=== PATIENT | female | born 1985 | race American Indian/Alaskan Native ===

== ENCOUNTER 2019-12-02 00:13 | Emergency (ER) | payer SELFPAY ==
--- NOTE | 2019-12-02 01:59 | XRay Report ---
CHEST 1 VIEW INDICATION: Chest Pain. COMPARISON: None. FINDINGS: Support devices: None. Heart: Normal. Lungs/Pleura: No acute pulmonary or pleural findings. IMPRESSION: 1. No acute findings. Signer Name: Pancho Joshi MD Signed: 12/02/2019 1:54 AM Workstation Name: [id number]
[2019-12-02 03:28] LABS: Basophils % (Auto) 0.2 % (0.0-1.8); Eosinophils % (Auto) 0.6 % (0.0-4.3); Hematocrit 36.1 % (30.3-42.9); Hemoglobin 11.9 gm/dl (10.1-14.3); Lymphocytes % (Auto) 30.3 % (13.4-35.0); Mean Corpuscular HGB Conc 33 % (30-34); Mean Corpuscular Volume 89 fl (79-97); Monocytes # (Auto) 0.5 K/mm3 (0.0-0.8); Monocytes % (Auto) 6.8 % (0.0-7.3); Platelet Count 317 K/mm3 (140-440); Red Blood Count 4.04 M/mm3 (3.65-5.03)
[2019-12-02 03:53] LABS: BUN/Creatinine Ratio 7; Blood Urea Nitrogen 8 mg/dL (7-17); Calcium 9.9 mg/dL (8.4-10.2); Hemolysis Index 28
[2019-12-02] MEDS ORDERED: ONDANSETRON 4 MG ODT TAB PO ONE (06:12)
[2019-12-02] MEDS ORDERED: ONDANSETRON 4 MG ODT TAB ONE (06:15)
[2019-12-02] MEDS ORDERED: ALUM-MAG HYDROXIDE-SIMETHICONE 200-200-20MG/5ML ORAL LIQD 30 ML PO ONE (09:59)
[2019-12-02] MEDS ORDERED: LIDOCAINE VISCOUS 2% 15 ML ORAL LIQD PO ONE (09:59)
[2019-12-02 10:01] VITALS: BP 129/87
--- NOTE | 2019-12-02 10:41 | Emergency Department Report ---
ED Chest Pain HPI - General Chief Complaint: Chest Pain Stated Complaint: CHEST PAIN,ARM PAIN ,NEAURS Time Seen by Provider: 12/02/19 09:39 Source: patient Mode of arrival: Ambulatory Limitations: No Limitations - History of Present Illness Initial Comments: 34-year-old female with a past medical history of recently diagnosed hypertension and reflux presents to the Hospital complaining of continued intermittent chest pain since mid October. Patient has been experiencing intermittent chest tightness at times and a burning sensation at other times. Pain is she started in the epigastric/lower mid chest region and now is more in the mid chest. Patient has associated nausea without vomiting. She denies shortness of breath and diaphoresis. She has intermittent tingling sensation to her left arm and hand. Patient was initially seen at a in the ER in [employer] in October for similar symptoms. She was diagnosed with new-onset hypertension and GERD. She was discharged on Pepcid and hydrochlorothiazide 25 mg daily. She didn't followed up with the [facility] earlier this month and had her blood pressure rechecks without medication adjustment. Patient now comes ER here due to continued symptoms. She does report some relief with taking Pepcid. Patient does not take NSAIDs. No previous cardiac workup. Her father of a heart attack in his 50s. She does not smoke, use cocaine, have Tenderness, recent travel, PE / DVT, or known elevated cholesterol and diabetes. Severity scale (0 -10): 9 - Related Data Previous Rx's Medication Instructions Recorded Last Taken Type Mag Hydrox/Aluminum Hyd/Simeth 20 ml PO QID PRN #1 bottle 12/02/19 Unknown Rx [Maalox Advanced Suspension] Omeprazole Magnesium [PriLOSEC Otc] 20 mg PO QDAY #14 tablet. 12/02/19 Unknown Rx Allergies Allergy/AdvReac Type Severity Reaction Status Date / Time acetaminophen [From Percocet] Allergy Hives Verified 12/02/19 00:42 amoxicillin Allergy Swelling Verified 12/02/19 00:42 oxycodone [From Percocet] Allergy Hives Verified 12/02/19 00:42 Heart Score - HEART Score History: Slightly suspicious EKG: Normal Age: < 45 Risk factors: 1-2 risk factors Troponin: < normal limit HEART Score: 1 ED Review of Systems ROS: Stated complaint: CHEST PAIN,ARM PAIN ,NEAURS Other details as noted in HPI Comment: All other systems reviewed and negative Gastrointestinal: diarrhea (loose stools since October without hematochezia or melena) Neurological: paresthesias (intermittent left arm) ED Past Medical Hx - Past Medical History Previous Medical History?: Yes Hx Hypertension: Yes Hx GERD: Yes - Surgical History Past Surgical History?: Yes Additional Surgical History: X 3, Tubal Ligation, - Social History Smoking Status: Never Smoker - Medications Home Medications: Home Medications Medication Instructions Recorded Confirmed Last Taken Type Mag Hydrox/Aluminum Hyd/Simeth 20 ml PO QID PRN #1 bottle 12/02/19 Unknown Rx [Maalox Advanced Suspension] Omeprazole Magnesium [PriLOSEC Otc] 20 mg PO QDAY #14 tablet. 12/02/19 Unknown Rx ED Physical Exam - General Limitations: No Limitations - Other Other exam information: General: No limitations, patient is alert in no acute distress Head exam: Atraumatic, normocephalic Eyes exam: Normal appearance ENT: Moist mucous membrane Neck exam: Normal inspection, full range of motion, no meningismus nontender Respiratory exam: Clear to auscultation bilateral, no wheezes, rales, crackles Cardiovascular: Normal rate and rhythm, normal heart sounds, chest wall nontender Abdomen: Soft, nondistended, and nontender, with normal bowel sounds, no rebound, or guarding Extremity: Full range of motion normal inspection no deformity, no calf tenderness or leg edema Back: Normal Inspection, full range of motion, no tenderness Neurologic: Alert, oriented x3, cranial nerves intact, no motor or sensory deficit Psychiatric: normal affect, normal mood Skin: Warm, dry, intact ED Course Vital Signs 12/02/19 12/02/19 12/02/19 00:24 07:59 09:35 Temperature 98.0 F 97.8 F Pulse Rate 101 H 74 Respiratory 18 20 Rate Blood Pressure 139/79 120/87 Blood Pressure 117/80 [Right] O2 Sat by Pulse 99 100 Oximetry 12/02/19 09:45 Temperature Pulse Rate Respiratory Rate Blood Pressure 129/87 Blood Pressure [Right] O2 Sat by Pulse 100 Oximetry DEEPA score - Deepa Score Age > 65: (0) No Aspirin use within the Past 7 Days: (0) No 3 or more CAD Risk Factors: (0) No 2 or more Angina events in past 24 hrs: (0) No Known CAD with more than 50% Stenosis: (0) No Elevated Cardiac Markers: (0) No ST Deviation Greater than 0.5mm: (0) No DEEPA Score: 0 ED Medical Decision Making - Lab Data Result diagrams: 12/02/19 02:48 12/02/19 02:48 Lab Results 12/02/19 12/02/19 12/02/19 Range/Units 02:48 02:48 02:48 WBC 6.6 (4.5-11.0) K/mm3 RBC 4.04 (3.65-5.03) M/mm3 Hgb 11.9 (10.1-14.3) gm/dl Hct 36.1 (30.3-42.9) % MCV 89 (79-97) fl MCH 30 (28-32) pg MCHC 33 (30-34) % RDW 14.0 (13.2-15.2) % Plt Count 317 (140-440) K/mm3 Lymph % (Auto) 30.3 (13.4-35.0) % [place] % (Auto) 6.8 (0.0-7.3) % Eos % (Auto) 0.6 (0.0-4.3) % Baso % (Auto) 0.2 (0.0-1.8) % Lymph # 2.0 (1.2-5.4) K/mm3 [place] # 0.5 (0.0-0.8) K/mm3 Eos # 0.0 (0.0-0.4) K/mm3 Baso # 0.0 (0.0-0.1) K/mm3 Seg Neutrophils % 62.1 (40.0-70.0) % Seg Neutrophils # 4.1 (1.8-7.7) K/mm3 Sodium 140 (137-145) mmol/L Potassium 3.7 (3.6-5.0) mmol/L Chloride 99.7 (98-107) mmol/L Carbon Dioxide 26 (22-30) mmol/L Anion Gap 18 mmol/L BUN 8 (7-17) mg/dL Creatinine 1.1 (0.7-1.2) mg/dL Estimated GFR > 60 ml/min BUN/Creatinine Ratio 7 % Glucose 103 H (65-100) mg/dL Calcium 9.9 (8.4-10.2) mg/dL Troponin T < 0.010 (0.00-0.029) ng/mL HCG, Qual Negative (Negative) 12/02/19 12/02/19 Range/Units 04:34 07:00 WBC (4.5-11.0) K/mm3 RBC (3.65-5.03) M/mm3 Hgb (10.1-14.3) gm/dl Hct (30.3-42.9) % MCV (79-97) fl MCH (28-32) pg MCHC (30-34) % RDW (13.2-15.2) % Plt Count (140-440) K/mm3 Lymph % (Auto) (13.4-35.0) % [place] % (Auto) (0.0-7.3) % Eos % (Auto) (0.0-4.3) % Baso % (Auto) (0.0-1.8) % Lymph # (1.2-5.4) K/mm3 [place] # (0.0-0.8) K/mm3 Eos # (0.0-0.4) K/mm3 Baso # (0.0-0.1) K/mm3 Seg Neutrophils % (40.0-70.0) % Seg Neutrophils # (1.8-7.7) K/mm3 Sodium (137-145) mmol/L Potassium (3.6-5.0) mmol/L Chloride (98-107) mmol/L Carbon Dioxide (22-30) mmol/L Anion Gap mmol/L BUN (7-17) mg/dL Creatinine (0.7-1.2) mg/dL Estimated GFR ml/min BUN/Creatinine Ratio % Glucose (65-100) mg/dL Calcium (8.4-10.2) mg/dL Troponin T < 0.010 < 0.010 (0.00-0.029) ng/mL HCG, Qual (Negative) - EKG Data -: EKG Interpreted by Nv EKG shows normal: sinus rhythm, ST-T waves (no stemi) Rate: normal - EKG Data 12/02/19 10:42 repeat ed ekg at 10:16a normal - Radiology Data Radiology results: report reviewed CHEST 1 VIEW INDICATION: Chest Pain. COMPARISON: None. FINDINGS: Support devices: None. Heart: Normal. Lungs/Pleura: No acute pulmonary or pleural findings. IMPRESSION: 1. No acute findings. - Medical Decision Making Patient has mid chest pain intermittent tightness and burning and also complains of uncomfortable feeling swelling. Patient has a normal EKG x 2 with 3 negative troponins and a low heart score. provided maalox and viscous lidocaine in ED Patient warrants outpatient follow-up. She has been seen by primary care doctor. Symptoms continued despite Prilosec. Patient be placed on a PPI qand Maalox. GI and cardio f/u for outpt stress with [facility] will be proved - Differential Diagnosis mi, atypical cp, costochondritis, GERD, esophageal spasm, PE Critical Care Time: No Critical care attestation.: If time is entered above; I have spent that time in minutes in the direct care of this critically ill patient, excluding procedure time. ED Disposition Clinical Impression: Chest pain, GERD (gastroesophageal reflux disease) Disposition: TO HOME OR SELFCARE Is pt being admited?: No Does the pt Need Aspirin: No Condition: Stable Instructions: Chest Pain (ED), Gastroesophageal Reflux Disease (ED) Additional Instructions: Take the medication as prescribed. Follow-up with your doctor or with the doctor provided. Return is symptoms worsen as indicated by your discharge instructions. Prescriptions: Mag Hydrox/Aluminum Hyd/Simeth [Maalox Advanced Suspension] 20 ml PO QID PRN #1 bottle PRN Reason: Indigestion Omeprazole Magnesium [PriLOSEC Otc] 20 mg PO QDAY #14 tablet. Referrals: PRIMARY CARE, [Primary Care Provider] - 3-5 Days [facility] [Provider Group] - 2-3 Days [facility] [Provider Group] - 3-5 Days (GI doctor ) Time of Disposition: 10:46
== END 2019-12-02 11:19 | disposition home or self-care (01) ==
LOC: ED 00:13
DX: K21.9 Gastro-esophageal reflux disease without esophagitis (principal); Z98.51 Tubal ligation status; I10 Essential (primary) hypertension; Z79.899 Other long term (current) drug therapy; Z88.6 Allergy status to analgesic agent; Z88.1 Allergy status to other antibiotic agents; Z88.5 Allergy status to narcotic agent
CPT/HCPCS: 36415; 71045; 80048; 84484; 84703; 85025; 93005; 93010; Q0162

== ENCOUNTER 2020-06-03 19:25 | Emergency (ER) | payer OTHER ==
--- NOTE | 2020-06-03 20:28 | Event Note ---
ED Screening Note ED Screening Note: tingling in chest recent dx gerd today she took bp pill had sweaty palms/feet This initial assessment/diagnostic orders/clinical plan/treatment(s) is/are subject to change based on patients health status, clinical progression and re- assessment by fellow clinical providers in the ED. Further treatment and workup at subsequent clinical providers discretion. Patient/guardian urged not to elope from the ED as their condition may be serious if not clinically assessed and managed. Initial orders include: labs ua xray
[2020-06-03 21:52] LABS: Hematocrit TNR % (30.3-42.9); Hemoglobin TNR gm/dl (10.1-14.3); Mean Corpuscular Volume TNR fl (79-97); Red Blood Count TNR M/mm3 (3.65-5.03)
[2020-06-03 21:53] LABS: Basophils % (Auto) TNR % (0.0-1.8); Eosinophils % (Auto) TNR % (0.0-4.3); Lymphocytes % (Auto) TNR % (13.4-35.0); Mean Corpuscular HGB Conc TNR % (30-34); Mean Platelet Volume TNR fl (6-12); Monocytes % (Auto) TNR % (0.0-7.3); Platelet Count TNR K/mm3 (140-440); Red Cell Distribution Width TNR % (13.2-15.2)
[2020-06-03 21:54] LABS: Basophils # (Auto) TNR K/mm3 (0.0-0.1); Eosinophils # (Auto) TNR K/mm3 (0.0-0.4); Lymphocytes # (Auto) TNR K/mm3 (1.2-5.4); Monocytes # (Auto) TNR K/mm3 (0.0-0.8)
[2020-06-03 22:01] LABS: Blood Urea Nitrogen 16 mg/dL (7-17); Calcium 9.2 mg/dL (8.4-10.2); Hemolysis Index 22
[2020-06-03 22:02] LABS: Basophils % (Auto) 0.5 % (0.0-1.8); Eosinophils % (Auto) 0.2 % (0.0-4.3); Hematocrit 38.4 % (30.3-42.9); Hemoglobin 12.5 gm/dl (10.1-14.3); Lymphocytes # (Auto) 1.8 K/mm3 (1.2-5.4); Lymphocytes % (Auto) 25.6 % (13.4-35.0); Mean Corpuscular HGB Conc 33 % (30-34); Mean Corpuscular Volume 90 fl (79-97); Monocytes # (Auto) 0.4 K/mm3 (0.0-0.8); Monocytes % (Auto) 5.4 % (0.0-7.3); Platelet Count 296 K/mm3 (140-440); Red Blood Count 4.28 M/mm3 (3.65-5.03); Red Cell Distribution Width 14.2 % (13.2-15.2)
[2020-06-03 22:23] LABS: Alanine Aminotransferase 12 units/L (7-56); BUN/Creatinine Ratio 18
[2020-06-03 22:25] LABS: HCG Qualitative,Urine Negative (Negative)
--- NOTE | 2020-06-03 23:14 | XRay Report ---
CHEST 2 VIEWS INDICATION / CLINICAL INFORMATION: MAIN. Chest pain COMPARISON: None available. FINDINGS: SUPPORT DEVICES: None. HEART / MEDIASTINUM: No significant abnormality. LUNGS / PLEURA: No significant pulmonary or pleural abnormality. No pneumothorax. ADDITIONAL FINDINGS: No significant additional findings. IMPRESSION: 1. No acute findings. Signer Name: Kevyn Key MD Signed: 06/03/2020 11:09 PM Workstation Name: [id number]
--- NOTE | 2020-06-04 01:49 | Emergency Department Report ---
ED General Adult HPI - General Chief complaint: Chest Pain Stated complaint: ACCELERATED HEART RATE, SWEATY HANDS Time Seen by Provider: 06/04/20 00:01 Source: patient Mode of arrival: Ambulatory Limitations: No Limitations - History of Present Illness Initial comments: 34-year-old F [place] female with past medical history of hypertension was currently taking hydrochlorothiazide 25 mg when her doctor has changed her about 6 months ago to lisinopril she is been taking medication off and on but not quite as prescribed and states that she has been feeling what she thinks are side effect of the medication once since symptoms she is been experiencing is a dry cough and other is tingling to the lips and occasional palpitations and near sensations of sweats. States that she does not feel the symptoms when she is not taking the medication but only after she been on the medication for couple days she reports no chest pain, hemoptysis, hematemesis, hematochezia Radiation: non-radiation Improves with: none Worsens with: none Associated Symptoms: denies: confusion, chest pain, cough, loss of appetite, malaise, shortness of breath, syncope, weakness Treatments Prior to Arrival: none - Related Data Previous Rx's Medication Instructions Recorded Last Taken Type Mag Hydrox/Aluminum Hyd/Simeth 20 ml PO QID PRN #1 bottle 12/02/19 Unknown Rx [Maalox Advanced Suspension] Omeprazole Magnesium [PriLOSEC Otc] 20 mg PO QDAY #14 tablet. 12/02/19 Unknown Rx Ondansetron [Zofran Odt] 4 mg PO Q8HR PRN #14 tab.rapdis 12/02/19 Unknown Rx Allergies Allergy/AdvReac Type Severity Reaction Status Date / Time acetaminophen [From Percocet] Allergy Hives Verified 12/02/19 00:42 amoxicillin Allergy Swelling Verified 12/02/19 00:42 oxycodone [From Percocet] Allergy Hives Verified 12/02/19 00:42 ED Review of Systems ROS: Stated complaint: ACCELERATED HEART RATE, SWEATY HANDS Other details as noted in HPI Comment: All other systems reviewed and negative ED Past Medical Hx - Past Medical History Previous Medical History?: Yes Hx Hypertension: Yes Hx GERD: Yes - Surgical History Past Surgical History?: Yes Additional Surgical History: X 3, Tubal Ligation, - Social History Smoking Status: Never Smoker - Medications Home Medications: Home Medications Medication Instructions Recorded Confirmed Last Taken Type Mag Hydrox/Aluminum Hyd/Simeth 20 ml PO QID PRN #1 bottle 12/02/19 Unknown Rx [Maalox Advanced Suspension] Omeprazole Magnesium [PriLOSEC Otc] 20 mg PO QDAY #14 tablet. 12/02/19 Unknown Rx Ondansetron [Zofran Odt] 4 mg PO Q8HR PRN #14 tab.rapdis 12/02/19 Unknown Rx ED Physical Exam - General Limitations: No Limitations General appearance: alert, in no apparent distress - Head Head exam: Present: atraumatic, normocephalic - Eye Eye exam: Present: normal appearance, PERRL, EOMI Pupils: Present: normal accommodation - ENT ENT exam: Present: normal exam, normal orophraynx, mucous membranes moist - Neck Neck exam: Present: normal inspection, full ROM - Respiratory Respiratory exam: Present: normal lung sounds bilaterally. Absent: respiratory distress - Cardiovascular Cardiovascular Exam: Present: regular rate, normal rhythm. Absent: systolic murmur, diastolic murmur, rubs, gallop - GI/Abdominal GI/Abdominal exam: Present: soft, normal bowel sounds - Extremities Exam Extremities exam: Present: normal inspection - Back Exam Back exam: Present: normal inspection - Neurological Exam Neurological exam: Present: alert, oriented X3 - Psychiatric Psychiatric exam: Present: normal affect, normal mood - Skin Skin exam: Present: warm, dry, intact, normal color. Absent: rash ED Course Vital Signs 06/03/20 20:21 Pulse Rate 107 H Respiratory 16 Rate Blood Pressure 139/87 O2 Sat by Pulse 100 Oximetry ED Medical Decision Making - Lab Data Result diagrams: 06/03/20 21:51 06/03/20 21:30 - Medical Decision Making 34-year-old F [place] female ambulatory no acute distress speaking in full se ntences stable with a normal EKG with exception of mild tachycardia 107 which currently her heart rate is at 92. Asked patient to call her primary care provider in the morning to adjust her lisinopril and to hold the medication at this present time currently there is no signs of angioedema or wheezing no signs of anaphylaxis. Her blood pressure is stable as is her vitals. She understands the need to take the blood pressure medication given a past medical history and states she will call her doctor in the morning Critical care attestation.: If time is entered above; I have spent that time in minutes in the direct care of this critically ill patient, excluding procedure time. ED Disposition Clinical Impression: Medication reaction, Palpitations Disposition: - TO HOME OR SELFCARE Is pt being admited?: No Does the pt Need Aspirin: No Condition: Stable Instructions: Palpitations (ED) Additional Instructions: Please follow-up with your primary care provider to adjust your current hypertension medication is lisinopril may very well be causing some of the symptoms that you have been describing. Please revert back to new hydrochlorothiazide and call your foot physician in the morning for further guidance Referrals: TOÑITO MEADOWS MD [Staff Physician] - 3-5 Days
[2020-06-04 02:21] VITALS: BP 136/80
== END 2020-06-04 02:21 | disposition home or self-care (01) ==
LOC: ED 19:25
DX: T50.905A Adverse effect of unspecified drugs, medicaments and biological substances, initial encounter (principal); R00.2 Palpitations; I10 Essential (primary) hypertension; K21.9 Gastro-esophageal reflux disease without esophagitis; Z79.899 Other long term (current) drug therapy; Y92.89 Other specified places as the place of occurrence of the external cause; Z98.51 Tubal ligation status; Z88.1 Allergy status to other antibiotic agents; Z88.6 Allergy status to analgesic agent; Z88.8 Allergy status to other drugs, medicaments and biological substances
CPT/HCPCS: 36415; 71046; 80053; 81025; 84484; 84703; 85025; 93005

== ENCOUNTER 2020-12-19 04:53 | Emergency (ER) | payer SELFPAY ==
[2020-12-19] MEDS ORDERED: ASPIRIN 325 MG TAB PO ONE (05:37)
[2020-12-19 06:19] LABS: Basophils % (Auto) 0.2 % (0.0-1.8); Hematocrit 34.9 % (30.3-42.9); Hemoglobin 11.8 gm/dl (10.1-14.3); Lymphocytes # (Auto) 1.1 K/mm3 (1.2-5.4); Lymphocytes % (Auto) 14.9 % (13.4-35.0); Mean Corpuscular HGB Conc 34 % (30-34); Mean Corpuscular Volume 89 fl (79-97); Monocytes # (Auto) 0.2 K/mm3 (0.0-0.8); Monocytes % (Auto) 2.7 % (0.0-7.3); Platelet Count 281 K/mm3 (140-440); Red Blood Count 3.91 M/mm3 (3.65-5.03); Red Cell Distribution Width 14.6 % (13.2-15.2)
[2020-12-19 06:27] LABS: BUN/Creatinine Ratio 13; Blood Urea Nitrogen 12 mg/dL (7-17); Calcium 9.2 mg/dL (8.4-10.2); Hemolysis Index 0
--- NOTE | 2020-12-19 06:28 | Event Note ---
ED Screening Note Date of service: 12/19/20 Time: 06:27 ED Screening Note: Patient is a 35-year-old female who presents presents for chest pain malaise subjective fever x2 to 3 days. Symptoms are exacerbated by activity. Symptoms are relieved by nothing tried. Patient denies suspicious contacts no fever noted in triage today. This initial assessment/diagnostic orders/clinical plan/treatment(s) is/are subject to change based on patients health status, clinical progression and re-assessment by fellow clinical providers in the ED. Further treatment and workup at subsequent clinical providers discretion. Patient/guardian urged not to elope from the ED as their condition may be serious if not clinically assessed and managed. Initial orders include:
--- NOTE | 2020-12-19 07:09 | XRay Report ---
CHEST 1 VIEW 6:53 AM INDICATION / CLINICAL INFORMATION: Chest Pain. COMPARISON: 06/03/20. FINDINGS: SUPPORT DEVICES: None. HEART / MEDIASTINUM: The heart size and pulmonary vasculature are normal. The aorta is normal in luther yovani. LUNGS / PLEURA: No significant pulmonary or pleural abnormality. No pneumothorax. ADDITIONAL FINDINGS: No significant additional findings. IMPRESSION: No acute abnormality or significant change. Signer Name: Willard Worthington MD Signed: 12/19/2020 7:05 AM Workstation Name: [id number]
--- NOTE | 2020-12-19 08:57 | Emergency Department Report ---
ED General Adult HPI - General Chief complaint: Chest Pain Stated complaint: CHEST PAIN/LIGHTHEAD/NAUSEA/HEADACHE PUI?: Yes Time Seen by Provider: 12/19/20 08:55 Source: patient, RN notes reviewed, old records reviewed Mode of arrival: Ambulatory Limitations: No Limitations - History of Present Illness Initial comments: The patient was evaluated in the emergency department for symptoms described in the history of present illness. He/she was evaluated in the context of the global COVID-19 pandemic, which necessitated consideration that the patient might be at risk for infection with the virus that causes COVID-19. Institu tional protocols and algorithms that pertain to the evaluation of patients at risk for COVID-19 are in a state of rapid change based on information released by regulatory bodies including the CDC and federal and state organizations. These policies and algorithms were followed during the patient's care in the emergency department. Please note that these policies, procedures and recommendations changed on a rapid basis. During the entire history and physical examination, I had on complete personal protective equipment. During the history and physical examination, I am chaperoned by Danay Forde The patient is a 35-year-old female. She is not known to myself previously. She states that she is not . She presents to the ER today with multiple complaints. Her first complaint is headache. The headache is frontal, and bitemporal. The headache is not sudden or thunderclap in nature. The headache is not maximal in intensity, and headache is not the worst headache of her life, she reports a worse headache a few months ago. There is no neck pain or neck stiffness. There is no sore throat. There is positive dry cough. Positive intermittent chills. Positive sensation of ear fullness. No abdominal pain. Positive chest wall pain. No dysuria. No diarrhea. No vomiting. Positive nausea. Patient has not lost smell or taste. No travel, surgery, leg pain, leg swelling, DVT, pulmonary embolism risk factors. Has not really tried anything [id number] for her symptoms. Does not have a local primary care doctor. -: Gradual, hour(s) Location: head, chest Radiation: non-radiation Quality: aching Consistency: intermittent Improves with: medication, rest Worsens with: other (Chest wall pain increases with palpation. Headache does not have any exacerbating factors) - Related Data Previous Rx's Medication Instructions Recorded Last Taken Type Mag Hydrox/Aluminum Hyd/Simeth 20 ml PO QID PRN #1 bottle 12/02/19 Unknown Rx [Maalox Advanced Suspension] Omeprazole Magnesium [PriLOSEC Otc] 20 mg PO QDAY #14 tablet. 12/02/19 Unknown Rx Ondansetron [Zofran Odt] 4 mg PO Q8HR PRN #14 tab.rapdis 12/02/19 Unknown Rx Ibuprofen [Motrin] 400 mg PO Q8H PRN #30 tablet 12/19/20 Unknown Rx Metoclopramide [Reglan] 10 mg PO QID PRN #30 tablet 12/19/20 Unknown Rx Allergies Allergy/AdvReac Type Severity Reaction Status Date / Time acetaminophen [From Percocet] Allergy Hives Verified 12/02/19 00:42 amoxicillin Allergy Swelling Verified 12/02/19 00:42 oxycodone [From Percocet] Allergy Hives Verified 12/02/19 00:42 ED Review of Systems ROS: Stated complaint: CHEST PAIN/LIGHTHEAD/NAUSEA/HEADACHE Other details as noted in HPI Constitutional: chills. denies: fever Eyes: denies: eye discharge ENT: congestion Respiratory: cough Cardiovascular: chest pain Gastrointestinal: nausea. denies: abdominal pain Genitourinary: denies: dysuria Neurological: headache. denies: weakness Hematological/Lymphatic: denies: easy bleeding ED Past Medical Hx - Past Medical History Previous Medical History?: Yes Hx Hypertension: Yes Hx GERD: Yes - Surgical History Past Surgical History?: Yes Additional Surgical History: X 3, Tubal Ligation, - Social History Smoking Status: Never Smoker Substance Use Type: None - Medications Home Medications: Home Medications Medication Instructions Recorded Confirmed Last Taken Type Mag Hydrox/Aluminum Hyd/Simeth 20 ml PO QID PRN #1 bottle 12/02/19 Unknown Rx [Maalox Advanced Suspension] Omeprazole Magnesium [PriLOSEC Otc] 20 mg PO QDAY #14 tablet. 12/02/19 Unknown Rx Ondansetron [Zofran Odt] 4 mg PO Q8HR PRN #14 tab.rapdis 12/02/19 Unknown Rx Ibuprofen [Motrin] 400 mg PO Q8H PRN #30 tablet 12/19/20 Unknown Rx Metoclopramide [Reglan] 10 mg PO QID PRN #30 tablet 12/19/20 Unknown Rx ED Physical Exam - General Limitations: No Limitations General appearance: alert, in no apparent distress - Head Head exam: Present: atraumatic, normocephalic - Eye Eye exam: Present: normal appearance, PERRL, EOMI. Absent: conjunctival injection - ENT ENT exam: Present: normal exam, normal orophraynx, mucous membranes moist, TM's normal bilaterally, normal external ear exam - Neck Neck exam: Present: normal inspection, full ROM. Absent: tenderness, meningismus - Respiratory Respiratory exam: Present: normal lung sounds bilaterally, chest wall tenderness. Absent: respiratory distress, wheezes, rales, rhonchi, stridor, decreased breath sounds - Cardiovascular Cardiovascular Exam: Present: regular rate, normal rhythm, normal heart sounds. Absent: bradycardia, tachycardia, irregular rhythm, systolic murmur, diastolic murmur, rubs, gallop - GI/Abdominal GI/Abdominal exam: Present: soft. Absent: distended, tenderness, guarding, rebound, rigid, pulsatile mass - Extremities Exam Extremities exam: Present: normal inspection, full ROM, other (2+ pulses noted in the bilateral upper and lower extremities. There is no palpable cord. negative Homans sign. Muscular compartments are soft. The pelvis is stable.). Absent: pedal edema, calf tenderness - Back Exam Back exam: Present: normal inspection, full ROM. Absent: tenderness, CVA tenderness (R), CVA tenderness (L), paraspinal tenderness, vertebral tenderness - Neurological Exam Neurological exam: Present: alert, oriented X3, normal gait, other (There is no facial droop. The tongue is midline. Extraocular movements are intact bilaterally. There is 5 out of 5 strength in bilateral upper and lower extremities. Sensation is intact to light touch bilateral upper and lower extremities. There is no past-pointing. There is no pronator drift.). Absent: motor sensory deficit - Psychiatric Psychiatric exam: Present: normal affect, normal mood - Skin Skin exam: Present: warm, dry, intact, normal color. Absent: rash ED Course Vital Signs 12/19/20 12/19/20 05:16 09:08 Temperature 98.7 F 98.4 F Pulse Rate 105 H 73 Respiratory 18 18 Rate Blood Pressure 135/84 Blood Pressure 113/73 [Left] O2 Sat by Pulse 100 100 Oximetry ED Medical Decision Making - Lab Data Result diagrams: 12/19/20 05:42 12/19/20 05:42 Vital Signs 12/19/20 12/19/20 05:16 09:08 Temperature 98.7 F 98.4 F Pulse Rate 105 H 73 Respiratory 18 18 Rate Blood Pressure 135/84 Blood Pressure 113/73 [Left] O2 Sat by Pulse 100 100 Oximetry Lab Results 12/19/20 12/19/20 12/19/20 Range/Units 05:42 05:42 05:42 WBC 7.3 (4.5-11.0) K/mm3 RBC 3.91 (3.65-5.03) M/mm3 Hgb 11.8 (10.1-14.3) gm/dl Hct 34.9 (30.3-42.9) % MCV 89 (79-97) fl MCH 30 (28-32) pg MCHC 34 (30-34) % RDW 14.6 (13.2-15.2) % Plt Count 281 (140-440) K/mm3 Lymph % (Auto) 14.9 (13.4-35.0) % [place] % (Auto) 2.7 (0.0-7.3) % Eos % (Auto) 0.0 (0.0-4.3) % Baso % (Auto) 0.2 (0.0-1.8) % Lymph # (Auto) 1.1 L (1.2-5.4) K/mm3 [place] # (Auto) 0.2 (0.0-0.8) K/mm3 Eos # (Auto) 0.0 (0.0-0.4) K/mm3 Baso # (Auto) 0.0 (0.0-0.1) K/mm3 Seg Neutrophils % 82.2 H (40.0-70.0) % Seg Neutrophils # 6.0 (1.8-7.7) K/mm3 Sodium 134 L (137-145) mmol/L Potassium 4.3 (3.6-5.0) mmol/L Chloride 99.2 (98-107) mmol/L Carbon Dioxide 27 (22-30) mmol/L Anion Gap 12 mmol/L BUN 12 (7-17) mg/dL Creatinine 0.9 (0.6-1.2) mg/dL Estimated GFR > 60 ml/min BUN/Creatinine Ratio 13 % Glucose 114 H (65-100) mg/dL Calcium 9.2 (8.4-10.2) mg/dL Troponin T < 0.010 (0.00-0.029) ng/mL HCG, Qual Negative (Negative) - EKG Data -: EKG Interpreted by Me EKG shows normal: sinus rhythm Rate: normal - EKG Data When compared to previous EKG there are: no significant change Interpretation: unchanged when compared t 12/19/20 10:42 Sinus rhythm, 96 bpm. Normal axis, high left ventricular voltage. CO interval prolonged, 201 ms. QTC prolonged, 463 ms. Abnormal EKG. Not a STEMI. Unchanged from prior EKG from May 2020 - Radiology Data Radiology results: pending, report reviewed, image reviewed X-ray of the chest is negative for acute disease. - Medical Decision Making Differential diagnosis, including but not limited to: Migraine headache, tension headache, cluster headache, costochondritis, GERD, gastritis, hiatal hernia, pneumonia, pericarditis, myocarditis, viral syndrome, COVID-19 Assessment and plan: 35-year-old female with complaint of headache, chest tightness, and chills. Tachycardia resolved. She has no pulmonary embolism or DVT risk factors, she is low risk by Wells criteria, not currently tachycardic, tachypneic or hypoxic. This is unlikely to be a pulmonary embolism. EKG unchanged from prior, troponin negative x1, patient at very low risk for m ajor adverse cardiac event as per heart score. Equal pulses in the upper and lower extremities, no pulsatile abdominal mass, x- ray of the chest unremarkable, aortic disease is very unlikely based off of the history physical examination and available diagnostics. Patient has a GCS of 15, with a nonfocal neurologic examination, no meningeal signs, this is not the worst headache of her life. We have treated her headache supportively and symptomatically. She is resting comfortably in her stretcher, and playing on the cellular phone, and does not appear to be in any acute distress. It appears that the patient is suitable to follow-up with an outpatient primary care doctor. Even if the patient is having COVID-19, she is not hypoxic, no respiratory distress, so supportive care is indicated Critical care attestation.: If time is entered above; I have spent that time in minutes in the direct care of this critically ill patient, excluding procedure time. ED Disposition Clinical Impression: Headache, Chest wall pain, Suspected 2019 novel coronavirus infection Disposition: DC-01 TO HOME OR SELFCARE Is pt being admited?: No Does the pt Need Aspirin: No Condition: Good Instructions: Chest Pain (ED), Chest Wall Pain, COVID-19 Additional Instructions: As we discussed, the patient most likely has novel coronavirus/COVID. the symptoms of COVID will typically persist 10 to 14 days. There is no cure at this time for COVID. Please make certain to self isolate and self quarantine, follow-up with an outpatient primary care doctor within the next 3 to 5 days, wash hands with soap and water frequently, thoroughly and often, patient may take the prescribed medications as needed and directed. Advance diet and drink plenty of fluids as tolerated. Avoid interactions with the very elderly, very young, and those with chronic medical conditions. Return to the emergency room right away with new pain, worsening pain, migration of pain, projectile vomiting, change in mental status, confusion, inability to tolerate liquid feeds, new, worsened or different symptoms not present on the initial emergency room evaluation. Referrals: TOÑITO MEADOWS MD [Staff Physician] - 7-10 days Forms: Work/School Release Form(ED) Heart Score - HEART Score History: Slightly suspicious EKG: Non-specific Age: < 45 Risk factors: No known risk factors Troponin: < normal limit HEART Score: 1 - Critical Actions Critical Actions: 0-3 pts:0.9-1.7%risk of adverse cardiac event.Candidate for discharge
[2020-12-19] MEDS ORDERED: METOCLOPRAMIDE 10 MG TAB PO ONE (09:23)
[2020-12-19] MEDS ORDERED: IBUPROFEN 400 MG TAB PO ONE (09:23)
[2020-12-19 11:13] VITALS: BP 107/60
== END 2020-12-19 11:13 | disposition home or self-care (01) ==
LOC: ED 04:53
DX: R51.9 Headache, unspecified (principal); R07.89 Other chest pain; K21.9 Gastro-esophageal reflux disease without esophagitis; Z20.828 Contact with and (suspected) exposure to other viral communicable diseases; Z98.51 Tubal ligation status; Z79.899 Other long term (current) drug therapy; Z88.8 Allergy status to other drugs, medicaments and biological substances
CPT/HCPCS: 36415; 71045; 80048; 84484; 84703; 85025; 93005; 99283

== ENCOUNTER 2021-01-09 12:03 | Emergency (ER) | payer SELFPAY ==
--- NOTE | 2021-01-09 12:27 | Emergency Department Report ---
ED General Adult HPI - General Chief complaint: Headache Stated complaint: VOMITING/DIARRHEA/CHEST PAIN Time Seen by Provider: 01/09/21 12:21 Source: patient Mode of arrival: Ambulatory Limitations: No Limitations - History of Present Illness Initial comments: This is a 35-year-old female with no prior medical history presents to ED complaining of 1 episode of nausea and watery loose stools that began yesterday. Patient states that she is also been experiencing right-sided flank pain times a couple of days. She denies fever/chills/nausea vomiting. Patient states that she got tested for Covid by her primary care physician and was -3 days ago. - Related Data Previous Rx's Medication Instructions Recorded Last Taken Type Omeprazole Magnesium [PriLOSEC Otc] 20 mg PO QDAY #14 tablet. 12/02/19 Unknown Rx Ibuprofen [Motrin] 400 mg PO Q8H PRN #30 tablet 12/19/20 Unknown Rx Metoclopramide [Reglan] 10 mg PO QID PRN #30 tablet 12/19/20 Unknown Rx Dicyclomine [Bentyl] 20 mg PO BID #20 tablet 01/09/21 Unknown Rx Mag Hydrox/Aluminum Hyd/Simeth 20 ml PO QID PRN #1 bottle 01/09/21 Unknown Rx [Maalox Advanced Suspension] Ondansetron [Zofran ODT TAB] 4 mg PO Q8HR PRN #14 tab.rapdis 01/09/21 Unknown Rx Allergies Allergy/AdvReac Type Severity Reaction Status Date / Time amoxicillin Allergy Swelling Verified 01/09/21 12:16 oxycodone [From Percocet] Allergy Hives Verified 01/09/21 12:16 ED Review of Systems ROS: Stated complaint: VOMITING/DIARRHEA/CHEST PAIN Other details as noted in HPI Comment: All other systems reviewed and negative ED Past Medical Hx - Past Medical History Hx Hypertension: Yes Hx GERD: Yes - Surgical History Additional Surgical History: X 3, Tubal Ligation, - Social History Smoking Status: Never Smoker Substance Use Type: None - Medications Home Medications: Home Medications Medication Instructions Recorded Confirmed Last Taken Type Omeprazole Magnesium [PriLOSEC Otc] 20 mg PO QDAY #14 tablet. 12/02/19 Unknown Rx Ibuprofen [Motrin] 400 mg PO Q8H PRN #30 tablet 12/19/20 Unknown Rx Metoclopramide [Reglan] 10 mg PO QID PRN #30 tablet 12/19/20 Unknown Rx Dicyclomine [Bentyl] 20 mg PO BID #20 tablet 01/09/21 Unknown Rx Mag Hydrox/Aluminum Hyd/Simeth 20 ml PO QID PRN #1 bottle 01/09/21 Unknown Rx [Maalox Advanced Suspension] Ondansetron [Zofran ODT TAB] 4 mg PO Q8HR PRN #14 tab.rapdis 01/09/21 Unknown Rx ED Physical Exam - General Limitations: No Limitations General appearance: alert, in no apparent distress - Head Head exam: Present: atraumatic, normocephalic - Eye Eye exam: Present: normal appearance - ENT ENT exam: Present: mucous membranes moist - Neck Neck exam: Present: normal inspection - Respiratory Respiratory exam: Present: normal lung sounds bilaterally. Absent: respiratory distress - Cardiovascular Cardiovascular Exam: Present: regular rate, normal rhythm. Absent: systolic murmur, diastolic murmur, rubs, gallop - GI/Abdominal GI/Abdominal exam: Present: soft, normal bowel sounds. Absent: distended, tenderness, guarding, organomegaly - Extremities Exam Extremities exam: Present: normal inspection, full ROM - Back Exam Back exam: Present: normal inspection, full ROM. Absent: CVA tenderness (R), CVA tenderness (L) - Neurological Exam Neurological exam: Present: alert, oriented X3, normal gait - Psychiatric Psychiatric exam: Present: normal affect, normal mood - Skin Skin exam: Present: warm, dry, intact, normal color. Absent: rash ED Course Vital Signs 01/09/21 01/09/21 12:16 16:22 Temperature 98 F 98.2 F Pulse Rate 100 H 85 Respiratory 20 18 Rate Blood Pressure 115/78 Blood Pressure 123/78 [Left] O2 Sat by Pulse 97 100 Oximetry ED Medical Decision Making - Lab Data Result diagrams: 01/09/21 13:35 01/09/21 13:35 Laboratory Last Values WBC 5.0 K/mm3 (4.5-11.0) 01/09/21 13:35 RBC 4.20 M/mm3 (3.65-5.03) 01/09/21 13:35 Hgb 12.3 gm/dl (10.1-14.3) 01/09/21 13:35 Hct 37.2 % (30.3-42.9) 01/09/21 13:35 MCV 89 fl (79-97) 01/09/21 13:35 MCH 29 pg (28-32) 01/09/21 13:35 MCHC 33 % (30-34) 01/09/21 13:35 RDW 14.6 % (13.2-15.2) 01/09/21 13:35 Plt Count 287 K/mm3 (140-440) 01/09/21 13:35 Lymph % (Auto) 24.2 % (13.4-35.0) 01/09/21 13:35 [place] % (Auto) 11.3 % (0.0-7.3) H 01/09/21 13:35 Eos % (Auto) 0.2 % (0.0-4.3) 01/09/21 13:35 Baso % (Auto) 0.4 % (0.0-1.8) 01/09/21 13:35 Lymph # (Auto) 1.2 K/mm3 (1.2-5.4) 01/09/21 13:35 [place] # (Auto) 0.6 K/mm3 (0.0-0.8) 01/09/21 13:35 Eos # (Auto) 0.0 K/mm3 (0.0-0.4) 01/09/21 13:35 Baso # (Auto) 0.0 K/mm3 (0.0-0.1) 01/09/21 13:35 Seg Neutrophils % 63.9 % (40.0-70.0) 01/09/21 13:35 Seg Neutrophils # 3.2 K/mm3 (1.8-7.7) 01/09/21 13:35 Urine Color Straw (Yellow) 01/09/21 12:32 Urine Turbidity Clear (Clear) 01/09/21 12:32 Urine pH 7.0 (5.0-7.0) 01/09/21 12:32 Ur Specific [place] 1.002 (1.003-1.030) L 01/09/21 12:32 Urine Protein <15 mg/dl mg/dL (Negative) 01/09/21 12:32 Urine Glucose (UA) Neg mg/dL (Negative) 01/09/21 12:32 Urine Ketones Neg mg/dL (Negative) 01/09/21 12:32 Urine Blood Sm (Negative) 01/09/21 12:32 Urine Nitrite Neg (Negative) 01/09/21 12:32 Urine Bilirubin Neg (Negative) 01/09/21 12:32 Urine Urobilinogen < 2.0 mg/dL (<2.0) 01/09/21 12:32 Ur Leukocyte Esterase Neg (Negative) 01/09/21 12:32 Urine WBC (Auto) 1.0 /HPF (0.0-6.0) 01/09/21 12:32 Urine RBC (Auto) 3.0 /HPF (0.0-6.0) 01/09/21 12:32 U Epithel Cells (Auto) 5.0 /HPF (0-13.0) 01/09/21 12:32 Urine Bacteria (Auto) 2+ /HPF (Negative) 01/09/21 12:32 Urine HCG, Qual Negative (Negative) 01/09/21 12:32 - EKG Data EKG shows normal: sinus rhythm Rate: normal - EKG Data Interpretation: normal EKG - Medical Decision Making This 35-year-old female presents to ED with loose watery diarrhea. Patient is able to tolerate food. All labs within normal limits urinalysis negative test negative. Discussed acid reflux flareup/gastroenteritis with the patient. Plan is to treat symptoms and follow-up with primary care physician. Discussed with the patient and worsening symptoms to return to the ED. Patient had no vomiting episode throughout ED stay. Patient was eating chips and drinking Gatorade in the ED room. Discussed soft/bland diet with the patient Critical care attestation.: If time is entered above; I have spent that time in minutes in the direct care of this critically ill patient, excluding procedure time. ED Disposition Clinical Impression: Gastritis, Gastroenteritis Disposition: DC-01 TO HOME OR SELFCARE Is pt being admited?: No Does the pt Need Aspirin: No Condition: Stable Instructions: Viral Gastroenteritis, Adult, Gastritis, Adult, Food Choices to Help Relieve Diarrhea, Adult Additional Instructions: Make sure to follow up with the primary care physician as discussed. If you have any worsening symptoms or develop new symptoms please return to ED immediately. Prescriptions: Dicyclomine [Bentyl] 20 mg PO BID #20 tablet Mag Hydrox/Aluminum Hyd/Simeth [Maalox Advanced Suspension] 20 ml PO QID PRN #1 bottle PRN Reason: Indigestion Ondansetron [Zofran ODT TAB] 4 mg PO Q8HR PRN #14 tab.rapdis PRN Reason: Nausea And Vomiting Referrals: PRIMARY CARE,MD [Primary Care Provider] [facility] Days [facility] [Outside] - 3-5 Days [facility] [Outside] - 3-5 Days Forms: Work/School Release Form(ED)
[2021-01-09 12:59] LABS: Bacteria,Urine 2+ /HPF (Negative); Bilirubin,Urine NEG (Negative); Blood,Urine SM (Negative); Color,Urine Straw (Yellow); HCG Qualitative,Urine Negative (Negative); Protein,Urine <15 mg/dL mg/dL (Negative); Urobilinogen,Urine < 2.0 mg/dL (<2.0)
[2021-01-09 13:51] LABS: Basophils % (Auto) 0.4 % (0.0-1.8); Eosinophils % (Auto) 0.2 % (0.0-4.3); Hematocrit 37.2 % (30.3-42.9); Hemoglobin 12.3 gm/dl (10.1-14.3); Lymphocytes # (Auto) 1.2 K/mm3 (1.2-5.4); Lymphocytes % (Auto) 24.2 % (13.4-35.0); Mean Corpuscular HGB Conc 33 % (30-34); Mean Corpuscular Volume 89 fl (79-97); Monocytes # (Auto) 0.6 K/mm3 (0.0-0.8); Monocytes % (Auto) 11.3 % (0.0-7.3); Platelet Count 287 K/mm3 (140-440); Red Cell Distribution Width 14.6 % (13.2-15.2)
[2021-01-09] MEDS ORDERED: FAMOTIDINE 20 MG TAB PO ONE (15:31)
[2021-01-09] MEDS ORDERED: ALUM-MAG HYDROXIDE-SIMETHICONE 200-200-20MG/5ML ORAL LIQD 30 ML PO ONE (15:31)
[2021-01-09] MEDS ORDERED: ACETAMINOPHEN 325 MG TAB PO ONE (15:31)
[2021-01-09 15:35] LABS: BUN/Creatinine Ratio 8; Blood Urea Nitrogen 7 mg/dL (7-17); Calcium 9.5 mg/dL (8.4-10.2); Hemolysis Index 1
[2021-01-09 16:23] VITALS: BP 123/78
== END 2021-01-09 16:05 | disposition home or self-care (01) ==
LOC: ED 12:03
DX: K29.70 Gastritis, unspecified, without bleeding (principal); K52.9 Noninfective gastroenteritis and colitis, unspecified; I10 Essential (primary) hypertension; K21.9 Gastro-esophageal reflux disease without esophagitis; Z79.899 Other long term (current) drug therapy; Z88.2 Allergy status to sulfonamides; Z88.8 Allergy status to other drugs, medicaments and biological substances
CPT/HCPCS: 36415; 80048; 81001; 81025; 85025; 93005; 99283